=== PATIENT | male | born 1965 | race Caucasian/White ===

== ENCOUNTER → 2019-10-24 16:20 | Outpatient (CLI) | payer BC, SELFPAY ==
--- NOTE | 2019-10-24 16:30 | XR_ITS ---
PROCEDURE: XR FOOT WT BEARING LT 3V CLINICAL INDICATION: pain COMPARISON: No exams were available for comparison FINDINGS: No fracture or dislocation. No lytic or blastic change. There is normal mineralization. The joint spaces are well-preserved. No significant degenerative/arthritic changes. No erosive changes evident. Other findings:There is degenerative plantar calcaneal spurring. Dystrophic calcification is seen in the region of the plantar fascia. IMPRESSION: No acute findings. Dictated by: Tim Hilliard 10/25/2019 08:48 Electronically signed by Tim Hilliard in [place] 10/25/2019 08:48
--- NOTE | 2019-10-24 16:30 | XR_ITS ---
PROCEDURE: XR FOOT WT BEARING RT 3V CLINICAL INDICATION: pain COMPARISON: No exams were available for comparison FINDINGS: No fracture or dislocation. No lytic or blastic change. There is normal mineralization. The joint spaces are well-preserved. No significant degenerative/arthritic changes. No erosive changes evident. Other findings:None. IMPRESSION: No acute findings. Dictated by: Tim Hilliard 10/25/2019 08:47 Electronically signed by Tim Hilliard in [place] 10/25/2019 08:47
== END ==
PROVIDERS: PCP Internal Medicine Adolescent Medicine; Visit Provider Podiatrist
DX: M79.672 Pain in left foot (principal); M79.671 Pain in right foot
CPT/HCPCS: 73630

== ENCOUNTER → 2019-11-14 08:37 | Outpatient (CLI) | payer BC, SELFPAY ==
--- NOTE | 2019-11-14 09:17 | MR_ITS ---
PROCEDURE: MR FOOT LT WO/W CON CLINICAL INDICATION: left foot pain, hx of crush injury Posttraumatic osteoarthritis, calcaneal stress fracture, os trigonum syndrome, plantar fascial tear COMPARISON: XR FOOT WT BEARING LT 3V from 10/24/2019 TECHNIQUE: Routine multiplanar multi echo sequences are performed without and with gadolinium enhancement. FINDINGS: The tibiofibular ligaments and the ATFL are intact. There is some edema about the posterior talofibular ligament which could be related to sprain or partial tear. On the axial STIR images there is a linear area of increased T2 signal within the peroneus longus tendon just distal to the tip of the lateral malleolus. A nondisplaced small split tear is a consideration. Please correlate with clinical parameters. This is best detected on series 5 images 9 through 11. The calcaneus has an unremarkable appearance. No evidence of stress fracture of the calcaneus. There is a small amount of fluid along both anterior and posterior aspect of the ankle joint. There is mild edema of the os trigonum. This could represent an old mcallister's fracture is well. Small amount fluid is present around this region. The Achilles tendon has an unremarkable appearance. No abnormal enhancement. IMPRESSION: 1. Possible nondisplaced split tear of the peroneus longus tendon just distal to the tip of the lateral malleolus. 2. Os trigonum noted with small amount of fluid around this region and minimal edema of the os trigonum. There is also some edema about the posterior talofibular ligament suggesting sprain or partial tear. These findings may be seen with os trigonum syndrome. Dictated by: Raza Armstrong MD 11/17/2019 11:26 Electronically signed by Raza Armstrong MD in [place] 11/17/2019 11:26
[2019-11-14 09:27] LABS: Chloride 106 mmol/L (98-107); Sodium 139 mmol/L (136-145)
[2019-11-14 09:28] LABS: Potassium 4.6 mmoL/L (3.5-5.1)
[2019-11-14 09:30] LABS: Alanine Aminotransferase 52 U/L (12-78); Albumin Level 4.2 g/dl (3.5-5.0); Albumin/Globulin Ratio 1.6 (1.1-1.8); Alkaline Phosphatase 103 U/L (38-126); Anion Gap 11.6 mEq/L (5-15); Aspartate Amino Transferase 46 U/L (17-59); Bilirubin,Total 0.2 mg/dl (0.2-1.3); Blood Urea Nitrogen 13 mg/dl (9-20); Carbon Dioxide 26 mmol/L (22.0-30.0); Estimated Glomerular Filt Rate 88 ml/min (>60); GFR (African American) 106 ML/MIN (>60); Globulin 2.6 g/dL (1.3-3.2); Total Protein,Serum 6.8 g/dl (6.3-8.2)
[2019-11-14 09:31] LABS: Calcium 9.9 mg/dl (8.4-10.2); Glucose 96 mg/dl (74-100)
[2019-11-14 10:01] LABS: C-Reactive Protein 1.6 mg/L (0-4)
[2019-11-14 10:44] LABS: Basophils % 0.5 % (0.1-2.0); Eosinophils # 0.2 K/mm3 (0.0-0.4); Eosinophils % 2.7 % (0.1-12.0); Hemoglobin 15.7 g/dL (14.1-18.0); Lymphocytes # 1.6 K/mm3 (0.7-4.5); Lymphocytes % 26.8 % (10-50); Mean Corpuscular HGB Conc 32.8 g/dL (31.8-35.4); Mean Corpuscular Hemoglobin 32.8 pg (27.0-31.2); Mean Platelet Volume 8.3 fl (7.4-10.4); Monocytes # 0.4 K/mm3 (0.1-1.0); Monocytes % 6.3 % (1.7-9.3); Neutrophils # 3.7 K/mm3 (1.8-7.8); Neutrophils % 63.7 % (37.0-80.0); Platelet Count 214 K/mm3 (142-424); Red Cell Distribution Width 13.1 % (11.5-17.5); White Blood Count 5.9 K/mm3 (4.8-10.8)
[2019-11-14 11:04] LABS: Chol/HDL Ratio 5.6 (1-3.5); Cholesterol 213 mg/dl (140-200); HDL Cholesterol 38 mg/dl (40-60); Triglycerides 99 mg/dl (30-150); VLDL Cholesterol 20 mg/dL (0-40)
[2019-11-14 11:07] LABS: Erythrocyte Sedimentation Rate 9 mm/hr (0-20)
[2019-11-14 11:22] LABS: Hemoglobin A1C 5.6 % (4.0-6.0)
[2019-11-14 11:32] LABS: Direct LDL Cholesterol 170.72 mg/dL (100-129)
[2019-11-14 11:34] LABS: Thyroid Stimulating Hormone 0.31 uIU/mL (0.465-4.68)
[2019-11-15 11:48] LABS: Vitamin D 25 Hydroxy 33.4 ng/mL (30.0-100.0)
[2019-11-30 18:30] LABS: Nicotine 8.5
[2019-11-30 18:31] LABS: Cotinine 153.4
== END ==
PROVIDERS: PCP Internal Medicine Adolescent Medicine; Visit Provider Podiatrist
DX: M79.672 Pain in left foot (principal); M19.172 Post-traumatic osteoarthritis, left ankle and foot; Q68.8 Other specified congenital musculoskeletal deformities; S97.82XA Crushing injury of left foot, initial encounter; Z87.81 Personal history of (healed) traumatic fracture
CPT/HCPCS: 36415; 73720; 80053; 80061; 80323; 82652; 83036; 84443; 85025; 85651; 86140; A9576

== ENCOUNTER → 2020-04-17 13:22 | Outpatient (CLI) | payer BC, SELFPAY ==
--- NOTE | 2020-04-17 13:27 | XR_ITS ---
PROCEDURE: XR LUMBAR SPINE MIN 4V CLINICAL INDICATION: SCIATICA, UNSPECIFIED LATERAILITY Left hip pain COMPARISON: No exams were available for comparison FINDINGS: No fracture or dislocation. No lytic or blastic change. There is normal mineralization. There is normal alignment. Mild degenerative disc disease is present at L1-L2. Mild facet arthritic changes noted at L5-S1. The SI joints have an unremarkable appearance. Other findings:Mild osteoarthritic changes are present in both hips IMPRESSION: Minimal degenerative changes, no acute finding Dictated b Raza Armstrong MD 04/17/2020 15:49 Raza Armstrong MD in [place] 04/17/2020 15:49
== END ==
PROVIDERS: PCP Internal Medicine Adolescent Medicine; Visit Provider Internal Medicine Adolescent Medicine
DX: M54.30 Sciatica, unspecified side (principal); M54.40 Lumbago with sciatica, unspecified side
CPT/HCPCS: 72110